=== PATIENT | male | born 1970 | race Caucasian/White ===

== ENCOUNTER → 2017-11-05 | Outpatient (CLI) | payer OTHER ==
[2017-11-05 18:46] LABS: Basophils # (A) 0.1 k/uL (0-0.2); Basophils % (A) 1 %; Eosinophils # (A) 0.2 k/uL (0-0.7); Eosinophils % (A) 2 %; HCT 50.3 % (39.0-53.0); HGB 16.4 gm/dL (13.0-17.5); Lymphocytes % (A) 24 %; MCH 29.8 pg (25.0-35.0); MCHC 32.7 g/dL (31.0-37.0); MCV 91.1 fL (80.0-100.0); Mean Platelet Volume 7.8; Monocytes # (A) 0.6 k/uL (0-1.0); Monocytes % (A) 8 %; Neutrophils # (A) 5.4 k/uL (1.3-7.7); Neutrophils % (A) 65 %; Platelet Count 296 k/uL (150-450); RBC 5.52 m/uL (4.30-5.90); RDW 13.9 % (11.5-15.5); WBC 8.4 k/uL (3.8-10.6)
[2017-11-05 18:50] LABS: ALT 27 U/L (21-72); AST 23 U/L (17-59); Albumin 4.3 g/dL (3.5-5.0); Alkaline Phosphatase 102 U/L (38-126); Anion Gap 11 mmol/L; Blood Urea Nitrogen 13 mg/dL (9-20); Calcium 9.7 mg/dL (8.4-10.2); Carbon Dioxide 29 mmol/L (22-30); Chloride 102 mmol/L (98-107); Cholesterol 144 mg/dL (<200); Glucose 68 mg/dL (74-99); HDL Cholesterol 30 mg/dL (40-60); LDL Cholesterol,Calculated 70 mg/dL (0-99); Potassium 4.1 mmol/L (3.5-5.1); Sodium 142 mmol/L (137-145); Total Bilirubin 0.6 mg/dL (0.2-1.3); Total Protein 7.7 g/dL (6.3-8.2); Triglycerides 220 mg/dL (<150)
[2017-11-05 19:20] LABS: PSA Annual Screen 1.82 ng/mL (0.00-4.00)
== END | disposition home or self-care (01) ==
LOC: MMGSC 12:22
PROVIDERS: ATTEND Family Medicine
DX: Z00.00 Encounter for general adult medical examination without abnormal findings (principal); E78.5 Hyperlipidemia, unspecified; N52.9 Male erectile dysfunction, unspecified; Z12.5 Encounter for screening for malignant neoplasm of prostate
CPT/HCPCS: 80061; 80053; 84443; 85025; 36415; G0103

== ENCOUNTER → 2023-03-26 | Outpatient (CLI) | payer OTHER ==
--- NOTE | 2023-03-26 16:45 | XR ---
EXAMINATION TYPE: XR foot limited bilateral DATE OF EXAM: 03/26/2023 1:34 PM INDICATION: Patient age:Male; 52 years old; Reason for study: M79.671 M79.672 M25.561 M25.562 M25.551 M25.552; [facility]. COMPARISON: None TECHNIQUE: The bilateral feet were examined in the AP, oblique, and lateral projections. FINDINGS: No evidence of any acute osseous pathology. No evidence of soft tissue swelling. Joints are preserve d. Scattered mild osteoarthrosis changes with joint space narrowing of the interphalangeal joints of the foot. Calcaneal plantar spurring is mild bilaterally IMPRESSION: 1. No evidence of acute fracture. 2. Minimal bilateral osteoarthrosis changes. 3. Minimal calcaneal plantar spurring.
--- NOTE | 2023-03-26 16:47 | XR ---
EXAMINATION TYPE: XR Hip Bilateral Complete DATE OF EXAM: 03/26/2023 1:35 PM INDICATION: Patient age:Male; 52 years old; Reason for study: M79.671 M79.672 M25.561 M25.562 M25.551 M25.552; [facility]. COMPARISON: None. TECHNIQUE: The lateral hips examined in the frontal and lateral projections FINDINGS: No evidence for acute process, joint dislocation or significant soft tissue swelling. Mild osteophyte formation of the superior acetabulum bilaterally. Mild joint space narrowing bilatera lly. Right external iliac stent graft. Right common iliac stent graft also partially visualized. IMPRESSION: 1. No acute process. 2. Mild bilateral hip osteoarthrosis
--- NOTE | 2023-03-26 16:48 | XR ---
EXAMINATION TYPE: XR knee limited bilateral DATE OF EXAM: 03/26/2023 1:35 PM INDICATION: Patient age:Male; 52 years old; Reason for study: M79.671 M79.672 M25.561 M25.562 M25.551 M25.552; COMPARISON: None. TECHNIQUE: The bilateral knee(s) was examined in Frontal, lateral and oblique projections. FINDINGS: No evidence of any acute osseous pathology, soft tissue swelling, or joint effusion is no elisa. Tricompartmental osteophyte formation involving the femoral condyles, tibial plateau and patella. Mi ld joint space narrowing. A fabella is present bilaterally. IMPRESSION: 1. No acute osseous pathology. 2. Minimal tricompartmental osteoarthritic changes laterally.
== END | disposition home or self-care (01) ==
LOC: RADXRMAIN 12:24
PROVIDERS: ATTEND Family Medicine
DX: M17.0 Bilateral primary osteoarthritis of knee (principal); M16.0 Bilateral primary osteoarthritis of hip; M19.071 Primary osteoarthritis, right ankle and foot; M19.072 Primary osteoarthritis, left ankle and foot; M77.32 Calcaneal spur, left foot; M77.31 Calcaneal spur, right foot
CPT/HCPCS: 73521